=== PATIENT | male | born 1945 | race Caucasian/White ===

== ENCOUNTER 2019-07-02 02:25 | Emergency (ER) | payer MEDICARE, OTHER ==
[~2019-07-02] VITALS: Ht 180.3 cm; Wt 92.5 kg
[~2019-07-02 02:25] MED LIST: ASTEPRO205.5 MCG/; AZIT250 PO; Amox Tr-K Clv1 EAC2 PO; CEPH500 PO; CODGUAEL PO; COQ PO; DEXT30SU PO; DOXY100 PO; EQUATE; ETOD500 PO; EZET10 PO; FLUTICASONE FUROATE; HYDACE5 PO; LEVOCETIRIZINE D5 MG PO; LEVOCETIRIZINE PO; LIDO5TP TOP; LISI20 PO; LISI5 PO; PRED10 PO; PROCODE120 PO; Prednisone20 MG PO; RXPROCODSY PO; RXTRAM50 PO; SIMV10 PO; TRAM50 PO; VERAMYST; [UNRECOGNIZED DRUG - OTHER] PO
[2019-07-02 02:41] LABS: BASOPHILS ABSOLUTE AUTO 0.07 K/mm3 (0.00-0.23); BASOPHILS PERCENT AUTO 1 % (0-2); EOSINOPHILS ABSOLUTE AUTO 0.25 K/mm3 (0.00-0.68); EOSINOPHILS PERCENT AUTO 2 % (0-6); Hematocrit 45.4 % (37.0-53.0); Hemoglobin 15.5 g/dL (13.5-17.5); IMMATURE GRAN ABSOLUTE AUTO 0.03 K/mm3 (0.00-0.10); IMMATURE GRAN PERCENT AUTO 0 % (0-1); LYMPHOCYTES ABSOLUTE AUTO 4.23 K/mm3 (0.84-5.20); LYMPHOCYTES PERCENT AUTO 38 % (21-46); MONOCYTES ABSOLUTE AUTO 1.03 K/mm3 (0.16-1.47); MONOCYTES PERCENT AUTO 9 % (4-13); Mean Corpuscular HGB 31.5 pg (26.0-34.0); Mean Corpuscular HGB Conc 34.1 g/dL (31.5-36.5); Mean Corpuscular Volume 92 fL (80-100); Mean Platelet Volume 11.5 fL (9.1-12.4); NEUTROPHILS ABSOLUTE AUTO 5.54 K/mm3 (1.96-9.15); NEUTROPHILS PERCENT AUTO 50 % (41-73); Platelet Count 182 K/mm3 (150-400); RDW Coefficient Variation 13.3 % (11.7-14.2); RDW Standard Deviation 45.7 fL (35.1-46.3); Red Blood Cell Count 4.92 M/mm3 (4.30-5.90); White Blood Cell Count 11.15 K/mm3 (4.00-11.30)
[2019-07-02 03:22] LABS: Alanine Aminotransfer (ALT/SGP 47 U/L (12-78); Albumin, Blood 3.8 g/dL (3.4-5.0); Alk Phos 54 U/L (50-136); Anion Gap 7 mmol/L (6-16); Aspartate Aminotrans (AST/SGOT 38 U/L (12-37); Bilirubin, Total 0.6 mg/dL (0.1-1.0); Blood Urea Nitrogen 22 mg/dL (8-24); Bun/Creatinine Ratio 22.6 (12.0-20.0); CO2, Blood 25 mmol/L (21-32); Calcium, Blood 9.3 mg/dL (8.5-10.1); Chloride, Blood 107 mmol/L (98-108); Creatinine, Blood 0.97 mg/dL (0.60-1.20); Globulin, Blood 3.9 g/dL (2.2-4.0); Glomerular Filtration Rate >60 (60-); Glucose, Blood 112 mg/dL (70-99); Potassium, Blood 5.1 mmol/L (3.5-5.5); Sodium, Blood 139 mmol/L (136-145); Total Protein, Blood 7.7 g/dL (6.4-8.2)
== END 2019-07-02 03:41 | disposition home or self-care (01) ==
LOC: ER 02:25
PROVIDERS: Emergency Medicine
DX: R10.13 Epigastric pain (principal); I10 Essential (primary) hypertension; E11.649 Type 2 diabetes mellitus with hypoglycemia without coma; Z87.891 Personal history of nicotine dependence; Z88.8 Allergy status to other drugs, medicaments and biological substances; Z88.0 Allergy status to penicillin; Z79.899 Other long term (current) drug therapy
CPT/HCPCS: 80053; 83690; 85025; 99284

== ENCOUNTER 2019-11-20 20:24 | Emergency (ER) | payer MEDICARE, OTHER ==
[~2019-11-20] VITALS: Ht 182.9 cm; Wt 86.2 kg
== END 2019-11-20 22:31 | disposition left against medical advice (07) ==
LOC: ER 20:24
DX: Z53.21 Procedure and treatment not carried out due to patient leaving prior to being seen by health care provider (principal)

== ENCOUNTER 2022-12-04 02:45 | Emergency (ER) | payer MEDICARE, OTHER ==
[~2022-12-04] VITALS: Ht 177.8 cm; Wt 93.0 kg
== END 2022-12-04 03:33 | disposition home or self-care (01) ==
LOC: ER 02:45
DX: B34.9 Viral infection, unspecified (principal); I10 Essential (primary) hypertension; E11.9 Type 2 diabetes mellitus without complications; Z87.891 Personal history of nicotine dependence
CPT/HCPCS: 36415; 71046; 93005; 93010; 99284-25